=== PATIENT | female | born 1965 | race African-American/Black ===

== ENCOUNTER 2020-06-18 07:05 | Day surgery (SDC) | payer MEDICAID, SELFPAY ==
[~2020-06-18] VITALS: Ht 170.2 cm; Wt 62.1 kg
[2020-06-18 10:50] VITALS: BP_SYST 124
[2020-06-18] MEDS ORDERED: DIPHENHYDRAMINE INJ 50 MG/ML VIAL ONE (14:24)
[2020-06-18] MEDS ORDERED: MIDAZOLAM HCL 5 MG/5 ML VIAL ONE (14:24)
== END 2020-06-18 12:30 | disposition home or self-care (01) ==
LOC: SMU 07:05 → SDS 07:05
PROVIDERS: ATTEND Internal Medicine
DX: M47.26 Other spondylosis with radiculopathy, lumbar region (principal); M51.16 Intervertebral disc disorders with radiculopathy, lumbar region; G89.4 Chronic pain syndrome; I10 Essential (primary) hypertension; Z88.0 Allergy status to penicillin; Z79.899 Other long term (current) drug therapy; Z90.710 Acquired absence of both cervix and uterus; Z20.828 Contact with and (suspected) exposure to other viral communicable diseases
CPT/HCPCS: 62323; J1200; J2250; U0003; 76000